=== PATIENT | male | born 1990 | race Caucasian/White ===

== ENCOUNTER 2023-11-23 11:55 | Emergency (ER) | payer BC, OTHER ==
[~2023-11-23] VITALS: Ht 182.9 cm; Wt 80.7 kg
[2023-11-23 12:00] VITALS: BP_SYST 106; PULSE 130; RESP 17; TEMP 101.8; O2SAT 99
[2023-11-23] MEDS ORDERED: ACETAMINOPHEN 325 MG TABLET PO ONE (12:30)
[2023-11-23] MEDS ORDERED: ACETAMINOPHEN 325 MG TABLET ONE (12:35)
[2023-11-23 12:53] LABS: COVID19 ANTIGEN SOFIA FIA NEGATIVE (NEGATIVE); INFLUENZA TYPE A Negative (NEGATIVE); INFLUENZA TYPE B NEGATIVE (NEGATIVE)
[2023-11-23 15:53] LABS: BASOPHILS % (AUTO) 0.2 % (0.0-2.0); EOSINOPHILS # (AUTO) 0.1 K/uL (0.0-0.4); EOSINOPHILS % (AUTO) 1.1 % (0.0-4.0); HEMATOCRIT 33.9 % (36-54); HEMOGLOBIN 11.5 g/dL (14.0-18.0); LYMPHOCYTES # (AUTO) 0.6 K/uL (1.0-5.5); LYMPHOCYTES % (AUTO) 8.6 % (20.5-51.5); MEAN CORPUSCULAR HEMOGLOBIN 29 pg (27-31); MEAN CORPUSCULAR HGB CONC 34 % (32-36); MEAN CORPUSCULAR VOLUME 85 fL (79.0-98.0); MONOCYTES # (AUTO) 0.4 K/uL (0.0-1.0); MONOCYTES % (AUTO) 5.8 % (1.7-9.3); NEUTROPHILS # (AUTO) 6.2 K/uL (1.8-7.7); NEUTROPHILS % (AUTO) 84.3 % (40.0-70.0); PLATELET COUNT (AUTO) 204 K/uL (130-430); RED BLOOD CELL COUNT(AUTO) 3.97 MIL/uL (4.2-6.2); RED CELL DISTRIBUTION WIDTH 13.5 % (9.0-15.0); WHITE BLOOD COUNT (AUTO) 7.3 K/uL (4.8-10.8)
[2023-11-23] MEDS ORDERED: cefTRIAXone 1 GM in LIDOCAINE 1%, 20 ML MDV 2.1 ML IM ONE (16:15)
[2023-11-23] MEDS ORDERED: LEVO750T64 PO (16:27)
[2023-11-23] MEDS ORDERED: ALBMDI INH (16:27)
[2023-11-23] MEDS ORDERED: IBUP-1971 PO (16:27)
[2023-11-23 16:41] LABS: CALCIUM 8.1 mg/dL (8.4-11.0); CREATININE 1.09 mg/dL (0.55-1.30); POTASSIUM 4.1 mmol/L (3.5-5.1)
[2023-11-23 16:52] VITALS: BP_SYST 111; PULSE 98; RESP 17; TEMP 101.8; O2SAT 99
== END 2023-11-23 16:51 | disposition home or self-care (01) ==
LOC: SED 11:55
DX: J18.9 Pneumonia, unspecified organism (principal); R50.9 Fever, unspecified; R05.9 Cough, unspecified; J34.89 Other specified disorders of nose and nasal sinuses; F17.200 Nicotine dependence, unspecified, uncomplicated; Z79.899 Other long term (current) drug therapy; Z20.822 Contact with and (suspected) exposure to COVID-19
CPT/HCPCS: 99284; 71045; 87426; 80048; 85025; 36415; 96372; 83605; 87804 ×2; 82397; J0696; J2001

== ENCOUNTER 2023-12-03 07:38 | Inpatient (IN) | payer BC ==
[~2023-12-03] VITALS: Ht 182.9 cm; Wt 72.6 kg
[2023-12-03] VITALS (8 sets, daily range): BP systolic 112–122; PULSE 98–121; RESP 21–22; TEMP 98.1–101; O2SAT 95–98
[~2023-12-03 07:38] MED LIST: ALBMDI INH; IBUP-1971 PO; LEVO750T64 PO
[2023-12-03 08:45] LABS: BASOPHILS % (AUTO) 0.1 % (0.0-2.0); EOSINOPHILS % (AUTO) 0.7 % (0.0-4.0); HEMATOCRIT 29.9 % (36-54); HEMOGLOBIN 10.3 g/dL (14.0-18.0); LYMPHOCYTES # (AUTO) 0.3 K/uL (1.0-5.5); MEAN CORPUSCULAR HEMOGLOBIN 29 pg (27-31); MEAN CORPUSCULAR HGB CONC 35 % (32-36); MEAN CORPUSCULAR VOLUME 84 fL (79.0-98.0); MONOCYTES # (AUTO) 0.4 K/uL (0.0-1.0); NEUTROPHILS # (AUTO) 6.2 K/uL (1.8-7.7); NEUTROPHILS % (AUTO) 89.2 % (40.0-70.0); PLATELET COUNT (AUTO) 224 K/uL (130-430); RED BLOOD CELL COUNT(AUTO) 3.56 MIL/uL (4.2-6.2); RED CELL DISTRIBUTION WIDTH 13.6 % (9.0-15.0)
[2023-12-03 09:09] LABS: INFLUENZA TYPE A Negative (NEGATIVE); INFLUENZA TYPE B NEGATIVE (NEGATIVE)
[2023-12-03 09:12] LABS: CALCIUM 8.5 mg/dL (8.4-11.0); CREATININE 0.94 mg/dL (0.55-1.30); POTASSIUM 3.6 mmol/L (3.5-5.1)
[2023-12-03 09:18] LABS: ALBUMIN 2.6 g/dL (3.4-4.8); BILIRUBIN,DIRECT 0.2 mg/dL (0.0-0.3); TOTAL BILIRUBIN 0.5 mg/dL (0.0-1.0); TOTAL PROTEIN, SERUM 8.2 g/dL (6.4-8.3)
[2023-12-03] MEDS ORDERED: cefTRIAXone 1 GM VIAL ONE (09:48)
[2023-12-03] MEDS: cefTRIAXone 1 GM in D5W 50 ML IV ONE (09:54)
[2023-12-03] MEDS ORDERED: AMMONIA 1 EA TOWELETTE INH ONE (10:22)
[2023-12-03] MEDS ORDERED: AZITHROMYCIN 500 MG/VIAL (ZITHROMAX) IV ONE (10:39)
[2023-12-03] MEDS: AZITHROMYCIN 500 MG in NS 250 ML IV ONE (10:45)
[2023-12-03] MEDS ORDERED: AZITHROMYCIN 500 MG in NS 250 ML IV SCH (13:00)
[2023-12-03] MEDS: NYSTATIN 500,000 UNITS/5 ML UDC PO SCH (15:18)
[2023-12-03] MEDS: PIPERACILLIN/TAZO 3.375/DEX-IS 50 ML IV SCH (15:19)
[2023-12-03] MEDS: FLUCONAZOLE 200 mg/ NS 100 ML IV SCH (15:20)
[2023-12-03] MEDS ORDERED: SULFAMETHOXAZOLE /TRIMETHOPRIM 20 ML in D5W 500 ML IV ONE ×3 (15:30→17:00)
[2023-12-03] MEDS ORDERED: SULFAMETHOXAZOLE /TRIMETHOPRIM 20 ML in D5W 500 ML IV SCH ×2 (18:00→22:00)
[2023-12-03] MEDS: SULFAMETHOXAZOLE /TRIMETHOPRIM 20 ML in D5W 500 ML IV SCH (18:24)
[2023-12-03] MEDS: ACETAMINOPHEN 325 MG TABLET ONE (21:05)
[2023-12-03] MEDS: METHYLPREDNISOLONE SOD SUCC 40 MG/ML VIAL IVP SCH (21:12)
[2023-12-03] MEDS: ACETAMINOPHEN 325 MG TABLET PO PRN (21:29)
[2023-12-03] MEDS: IPRATROPIUM/ALBUTEROL SULFATE 3 ML AMPUL.NEB (DUONEB) ONE (23:07)
[2023-12-03] MEDS: guaiFENesin/DEXTROMETHORPHAN 10 ML UDC ONE (23:11)
[2023-12-03] MEDS: MILK OF MAGNESIA 30 ML UDC ONE (23:12)
[2023-12-04] VITALS (9 sets, daily range): BP systolic 100–131; PULSE 90–100; RESP 16–22; TEMP 97.3–98.2; O2SAT 95–100
[2023-12-04] MEDS: MILK OF MAGNESIA 30 ML UDC PO PRN (00:38)
[2023-12-04] MEDS: TEMAZEPAM 15 MG CAPSULE ONE (00:39)
[2023-12-04] MEDS: guaiFENesin/DEXTROMETHORPHAN 10 ML UDC PO PRN (00:40)
[2023-12-04] MEDS: TEMAZEPAM 7.5 MG CAPSULE PO PRN (00:40)
[2023-12-04 06:02] LABS: BASOPHILS % (AUTO) 0.1 % (0.0-2.0); HEMOGLOBIN 10.7 g/dL (14.0-18.0); LYMPHOCYTES # (AUTO) 0.3 K/uL (1.0-5.5); LYMPHOCYTES % (AUTO) 11.6 % (20.5-51.5); MEAN CORPUSCULAR HEMOGLOBIN 29 pg (27-31); MEAN CORPUSCULAR HGB CONC 34 % (32-36); MEAN CORPUSCULAR VOLUME 84 fL (79.0-98.0); MONOCYTES # (AUTO) 0.1 K/uL (0.0-1.0); MONOCYTES % (AUTO) 3.2 % (1.7-9.3); NEUTROPHILS # (AUTO) 2.3 K/uL (1.8-7.7); NEUTROPHILS % (AUTO) 85.1 % (40.0-70.0); PLATELET COUNT (AUTO) 207 K/uL (130-430); RED CELL DISTRIBUTION WIDTH 13.2 % (9.0-15.0)
[2023-12-04 06:36] LABS: TOTAL IRON BIND. CAPACITY 175 ug/dL (250-450)
[2023-12-04 06:59] LABS: ALBUMIN 2.4 g/dL (3.4-4.8); CALCIUM 8.6 mg/dL (8.4-11.0); CREATININE 1.05 mg/dL (0.55-1.30); FREE T4 (FREE THYROXINE) 1.1 ng/dL (0.6-1.6); PHOSPHORUS 5.1 mg/dL (2.7-4.5); THYROID STIMULATING HORMONE 0.56 uIu/mL (0.34-4.82); TOTAL BILIRUBIN 0.3 mg/dL (0.0-1.0); TOTAL PROTEIN, SERUM 8.1 g/dL (6.4-8.3)
[2023-12-04 07:21] LABS: INR 1.6 (0.80-1.20); PROTHROMBIN TIME 15.9 SECS (9.5-12.5)
[2023-12-04 07:43] LABS: WHITE BLOOD COUNT (AUTO) 2.7 K/uL (4.8-10.8)
[2023-12-04] MEDS: IPRATROPIUM/ALBUTEROL SULFATE 3 ML AMPUL.NEB (DUONEB) INH PRN (07:52)
[2023-12-04] MEDS: AZITHROMYCIN 500 MG in NS 250 ML IV SCH (10:44)
[2023-12-05] VITALS: BP_SYST 129; PULSE 84; RESP 20; TEMP 98.2; O2SAT 96
[2023-12-05] MEDS ORDERED: TEMAZEPAM 15 MG CAPSULE ONE ×2 (03:33→03:55)
[2023-12-05 08:00] VITALS: BP_SYST 120; PULSE 101; RESP 20; TEMP 98.3; O2SAT 96
[2023-12-05 12:00] VITALS: BP_SYST 119; PULSE 97; RESP 18; TEMP 98.6; O2SAT 99
[2023-12-05] MEDS ORDERED: SODIUM CL 3% FOR INHALATION 15 ML VIAL.NEB INH ONE (13:45)
[2023-12-05 16:00] VITALS: BP_SYST 126; PULSE 100; RESP 20; TEMP 99
[2023-12-05 20:00] VITALS: BP_SYST 127; PULSE 86; RESP 20; TEMP 98.1; O2SAT 100
[2023-12-05 20:09] VITALS: O2SAT 98
[2023-12-05] MEDS: TEMAZEPAM 7.5 MG CAPSULE ONE (21:54)
[2023-12-06] VITALS (8 sets, daily range): BP systolic 109–128; PULSE 72–89; RESP 18–20; TEMP 97.7–98.5; O2SAT 98–100
[2023-12-06 05:39] LABS: BASOPHILS % (AUTO) 0.1 % (0.0-2.0); HEMATOCRIT 32.4 % (36-54); HEMOGLOBIN 11.2 g/dL (14.0-18.0); LYMPHOCYTES # (AUTO) 0.4 K/uL (1.0-5.5); LYMPHOCYTES % (AUTO) 9.7 % (20.5-51.5); MEAN CORPUSCULAR HEMOGLOBIN 29 pg (27-31); MEAN CORPUSCULAR HGB CONC 35 % (32-36); MEAN CORPUSCULAR VOLUME 83 fL (79.0-98.0); MONOCYTES # (AUTO) 0.3 K/uL (0.0-1.0); MONOCYTES % (AUTO) 8.7 % (1.7-9.3); NEUTROPHILS % (AUTO) 81.5 % (40.0-70.0); PLATELET COUNT (AUTO) 319 K/uL (130-430); RED BLOOD CELL COUNT(AUTO) 3.89 MIL/uL (4.2-6.2); RED CELL DISTRIBUTION WIDTH 13.4 % (9.0-15.0)
[2023-12-06 06:17] LABS: ALBUMIN 2.8 g/dL (3.4-4.8); CALCIUM 9.2 mg/dL (8.4-11.0); CREATININE 1.03 mg/dL (0.55-1.30); TOTAL BILIRUBIN 0.3 mg/dL (0.0-1.0); TOTAL PROTEIN, SERUM 8.7 g/dL (6.4-8.3)
[2023-12-06 08:19] LABS: WHITE BLOOD COUNT (AUTO) 3.7 K/uL (4.8-10.8)
[2023-12-06] MEDS ORDERED: TEMAZEPAM 15 MG CAPSULE PO PRN (09:00)
[2023-12-06] MEDS ORDERED: FLUC200T PO (17:43)
[2023-12-06] MEDS ORDERED: SULF1TAB48 PO (17:44)
[2023-12-06] MEDS ORDERED: Nystatin PO (17:49)
[2023-12-06] MEDS ORDERED: HYDROmorphone 2 MG/ML VIAL ONE (19:03)
[2023-12-06] MEDS ORDERED: MIDAZOLAM HCL 2 MG/2 ML VIAL (VERSED) ONE (19:03)
[2023-12-06 21:06] LABS: MYCOPLASMA PNEUMONIAE IgM 858 U/mL (0-769)
[2023-12-07 12:07] LABS: QUANTIFERON TB GOLD Indeterminate (Negative)
[2023-12-08 16:06] LABS: COCCIDIOIDES AB IGG 0.8 IV (<=0.9); COCCIDIOIDES AB IGM 0.2 IV (<=0.9)
== END 2023-12-06 22:45 | disposition home or self-care (01) | DRG 193 ==
LOC: SED 07:38 → STU 09:32 → SMU 12-04 18:05
PROVIDERS: ADMIT Internal Medicine; ATTEND Internal Medicine
DX: J18.9 Pneumonia, unspecified organism (principal); E43 Unspecified severe protein-calorie malnutrition; B37.0 Candidal stomatitis; D84.9 Immunodeficiency, unspecified; Z21 Asymptomatic human immunodeficiency virus [HIV] infection status; J84.89 Other specified interstitial pulmonary diseases; Z87.891 Personal history of nicotine dependence; Z79.899 Other long term (current) drug therapy; Z68.21 Body mass index [BMI] 21.0-21.9, adult
CPT/HCPCS: 36415; 71045; 71046; 71250-TC; 76376; 80048; 80053; 80076; 82785; 83540; 83550; 83605; 83615; 83735; 84100; 84439; 84443; 85025; 85610; 85651; 85730; 86480; 86606; 86635; 86738; 87040; 87081; 94640; 94760; 96365; 96375; 99285; G0378; J0456; J0696; J1030; J1170; J1450; J2543; J3465; J3490; J7050; J7060